=== PATIENT | male | born 1955 | race Caucasian/White ===

== ENCOUNTER 2022-04-02 14:13 | Emergency (ER) | payer MEDICARE, MEDICAID ==
[~2022-04-02] VITALS: Ht 177.8 cm; Wt 84.0 kg
[2022-04-02 14:14] VITALS: BP 140/65
[2022-04-02] MEDS ORDERED: ACETAMINOPHEN 325MG TABLET PO STA (14:24)
[2022-04-02 15:05] LABS: BASOPHILS % 0.2 % (0.0-2.0); EOSINOPHILS % 2.1 % (0.0-5.0); HEMATOCRIT. 40.5 % (42.0-52.0); HEMOGLOBIN. 13.8 g/dL (14.0-18.0); LYMPHOCYTES % 30.9 % (20.0-50.0); MEAN CORPUSCULAR HEMOGLOBIN 29.4 pg (28.0-32.0); MEAN CORPUSCULAR VOLUME 86.6 fL (80.0-94.0); MEAN PLATELET VOLUME 8.1 fl (7.4-10.4); MONOCYTES % 10.4 % (2.0-8.0); NEUTROPHILS % 56.4 % (40.0-76.0); PLATELET 236 x1000/uL (130-400); RED BLOOD CELL COUNT 4.68 mill/uL (4.7-6.1); RED CELL DISTRIBUTION WIDTH 14.9 % (11.6-14.6)
[2022-04-02 15:30] LABS: CHLORIDE 105 mEq/L (98-107)
[2022-04-02] MEDS ORDERED: ACET-2708 MT (16:17)
== END 2022-04-02 16:30 | disposition home or self-care (01) ==
LOC: ER 14:13
DX: R51.9 Headache, unspecified (principal); R00.1 Bradycardia, unspecified; N28.9 Disorder of kidney and ureter, unspecified; E78.00 Pure hypercholesterolemia, unspecified; F41.9 Anxiety disorder, unspecified; M10.9 Gout, unspecified
CPT/HCPCS: 36415; 71045; 80053; 84484; 85025; 93005; 99285

== ENCOUNTER 2024-04-21 11:51 | Emergency (ER) | payer MEDICARE, MEDICAID ==
[~2024-04-21] VITALS: Ht 165.1 cm; Wt 80.0 kg
[~2024-04-21 11:51] MED LIST: ACET-2708 MT
[2024-04-21 11:57] VITALS: BP 148/77; PULSE 70; RESP 16; TEMP 98.7; O2SAT 99
[2024-04-21] MEDS ORDERED: FLUT9.9S16 BOTHNSTRLS (14:01)
== END 2024-04-21 14:46 | disposition home or self-care (01) ==
LOC: ER 11:51
DX: R09.82 Postnasal drip (principal); E11.9 Type 2 diabetes mellitus without complications; E78.00 Pure hypercholesterolemia, unspecified; I10 Essential (primary) hypertension; Z98.890 Other specified postprocedural states
CPT/HCPCS: 87070; 87430; 99283

== ENCOUNTER 2025-02-19 19:09 | Emergency (ER) | payer MEDICARE, MEDICAID ==
[~2025-02-19] VITALS: Ht 170.2 cm; Wt 78.0 kg
[~2025-02-19 19:09] MED LIST changes: +FLUT9.9S16 BOTHNSTRLS
[2025-02-19 19:24] VITALS: O2SAT 99
[2025-02-19 19:25] VITALS: BP 149/105; PULSE 64; RESP 18; TEMP 36.7; O2SAT 98
== END 2025-02-19 19:51 | disposition home or self-care (01) ==
LOC: ER 19:09
DX: Z00.8 Encounter for other general examination (principal); E11.9 Type 2 diabetes mellitus without complications; E78.00 Pure hypercholesterolemia, unspecified; I10 Essential (primary) hypertension; Z76.0 Encounter for issue of repeat prescription; Z98.890 Other specified postprocedural states
CPT/HCPCS: 82962; 99282

== ENCOUNTER 2025-03-12 05:05 | Emergency (ER) | payer MEDICARE, MEDICAID ==
[~2025-03-12] VITALS: Ht 170.2 cm; Wt 96.7 kg
[2025-03-12 05:12] VITALS: O2SAT 97
[2025-03-12] MEDS ORDERED: VALA100044 MT (05:26)
[2025-03-12 05:34] VITALS: BP 122/69; PULSE 66; RESP 14; TEMP 36.7; O2SAT 95
[2025-03-12 05:44] VITALS: TEMP 98.1
[2025-03-12] MEDS: ACETAMINOPHEN 500MG TABLET PO ONE (05:44)
== END 2025-03-12 05:48 | disposition home or self-care (01) ==
LOC: ER 05:05
DX: B02.9 Zoster without complications (principal); E11.9 Type 2 diabetes mellitus without complications; E78.00 Pure hypercholesterolemia, unspecified; I10 Essential (primary) hypertension; Z79.624 Long term (current) use of inhibitors of nucleotide synthesis
CPT/HCPCS: 99283

== ENCOUNTER 2025-04-08 15:13 | Emergency (ER) | payer MEDICARE, MEDICAID ==
[~2025-04-08] VITALS: Ht 167.6 cm; Wt 78.0 kg
[~2025-04-08 15:13] MED LIST changes: +VALA100044 MT
[2025-04-08 15:45] VITALS: O2SAT 99
[2025-04-08] MEDS ORDERED: VALA100044 MT (17:01)
[2025-04-08] MEDS ORDERED: GABA-1180 MT (17:01)
[2025-04-08] MEDS: KETOROLAC 30MG/ML VIAL IM ONE (17:43)
[2025-04-08 17:46] VITALS: BP 128/78; PULSE 70; RESP 16; TEMP 36.7; O2SAT 99
== END 2025-04-08 17:44 | disposition home or self-care (01) ==
LOC: ER 15:13
DX: B02.9 Zoster without complications (principal); I10 Essential (primary) hypertension; E78.00 Pure hypercholesterolemia, unspecified; E11.9 Type 2 diabetes mellitus without complications; Z79.624 Long term (current) use of inhibitors of nucleotide synthesis; Z98.890 Other specified postprocedural states; Z79.899 Other long term (current) drug therapy
CPT/HCPCS: 99283; 96372; J1885